=== PATIENT | female | born 2005 | race Caucasian/White ===

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

== ENCOUNTER 2024-09-16 16:54 | Emergency (ER) | payer OTHER, SELFPAY ==
[2024-09-16 17:05] VITALS: BP 118/72; PULSE 90; RESP 20; TEMP 36.4; O2SAT 100
--- NOTE | 2024-09-16 17:41 | ED.URI ---
HPI - URI/Sore Throat General Chief Complaint: Upper Respiratory Infection Stated Complaint: Cough Time Seen by Provider: 09/16/24 17:41 Source: patient, RN notes reviewed and old records reviewed Mode of arrival: ambulatory Limitations: no limitations History of Present Illness HPI Narrative: 19-year-old female to Express Care with complaint of nonproductive cough, runny nose, headache for 3 weeks. That symptoms worsened overnight while sleeping and now affecting her quality of sleep. Patient has attempted to treat at home with various htbb-ovy-cbhqrma medications little relief. Patient denies fever, sore throat, shortness of breath, chest pain, allergies. Patient able to tolerate fluids by mouth. Patient resting comfortably in exam room in no acute distress, appears tired and acutely ill. Respirations even and nonlabored. Patient able to speak in complete sentences without difficulty. Related Data Allergies Allergy/AdvReac Type Severity Reaction Status Date / Time No Known Allergies Allergy Verified 09/16/24 17:15 Review of Systems Review of Systems: All systems reviewed & are unremarkable except as noted in HPI and below Constitutional: Constitutional: Reports as per HPI and Reports headache(s) Eyes: Eyes: Reports no additional eye complaints ENT: Reports as per HPI and Reports nasal discharge Cardiovascular: Cardiovascular: Reports no additional cardiovascular complaints, Denies chest pain and Denies dyspnea Respiratory: Respiratory: Reports no additional respiratory complaints, Reports cough and Denies dyspnea Musculoskeletal: Musculoskeletal: Reports no additional musculoskeletal complaints Neurologic: Reports system reviewed and no additional complaints, except as documented Psychiatric: Psychiatric: Reports no additional psychiatric complaints [facility] Past Medical History Medical History ADHD Eczema Musculoskeletal disorder Dislocated right shoulder Surgical History Surgical History Hx of tonsillectomy Social History Social History Tobacco type: e-cigarettes/vaping Alcohol intake: unknown Substance use: unknown Living arrangements: with family Occupation/Education: student Gender identity (if verbalized by the patient): Female Comments At the time of my signature, I reviewed and agree with the nursing past medical, surgical, social, and family history. There is no relevant family history pertinent to the patient complaint. Exam Const: General: cooperative, no acute distress, well developed, alert, ill appearing acutely, tired appearing, uncomfortable, well groomed and well nourished Nutritional Appearance: well nourished Orientation/consciousness: patient oriented x3 Limitations: no limitations HENMT: Head: normal to inspection Ears: external ears normal and TM abnormal with fluid behind the TM bilateral Face/Nose/Sinus: Normal external nose present, Abnormal mucous membranes and turbinates present boggy and erythematous, No erythema, No edema and sinus tenderness Face and sinus: normal facial exam, no erythema and no edema Mouth: Yes Normal oral and palatal mucosa present Throat: posterior oropharynx abnormal erythema and postnasal drainage Eyes: General: appearance normal, both eyes and all related structures Neck: Neck: normal visual inspection, full ROM and no meningeal signs Lymphatic: no lymphadenopathy noted and no lymphedema noted Chest: Chest palpation & inspection: normal inspection of the chest Resp: Effort & Inspection: normal respiratory effort and able to speak in complete sentences Auscultation: clear to auscultation bilaterally Cardio: Jugular venous distension: no JVD Rate: regular rate Rhythm: regular rhythm Back/Spine/Pelvis: Cervical Spine: cervical ROM normal Skin: General skin exam: normal color, no rashes or lesions noted and turgor normal Neuro: General: patient oriented x3, gait normal, moves all extremities and no meningeal signs Speech: normal speech Gait exam (Neuro): Normal gait present Extrem: General: normal to inspection, full ROM and capillary refill normal Psych: Appearance: grossly normal and well kempt Course Course Emergency Course: Some parts of this dictation were generated by voice recognition software and may contain typographical and/or grammatical inaccuracies. Level of Care: Express Care Visit Vital Signs Vital signs: Vital Signs Temperature 36.4 C 09/16/24 17:05 Pulse Rate 90 09/16/24 17:05 Respiratory Rate 20 09/16/24 17:05 Blood Pressure 118/72 09/16/24 17:05 Pulse Oximetry 100 09/16/24 17:05 Oxygen Delivery Room Air 09/16/24 17:05 Temperature 36.4 C 09/16/24 17:05 Pulse Rate 90 09/16/24 17:05 Respiratory Rate 20 09/16/24 17:05 Blood Pressure 118/72 09/16/24 17:05 Pulse Oximetry 100 09/16/24 17:05 Oxygen Delivery Room Air 09/16/24 17:05 reviewed MDM - URI/Sore Throat MDM Narrative Medical decision making narrative: 19-year-old female to Express Care with complaint of nonproductive cough, runny nose, headache for 3 weeks. That symptoms worsened overnight while sleeping and now affecting her quality of sleep. Patient has attempted to treat at home with various quup-qdx-wguyeku medications little relief. Patient denies fever, sore throat, shortness of breath, chest pain, allergies. Patient able to tolerate fluids by mouth. Patient resting comfortably in exam room in no acute distress, appears tired and acutely ill. Respirations even and nonlabored. Patient able to speak in complete sentences without difficulty. On exam, bilateral TMs with fluid Steri ir oropharynx erythematous with purulent postnasal drainage. Sinus tenderness, bilateral nares erythematous and boggy. Patient is sitting uncomfortably in exam room nontoxic in appearance. Patient appropriate for outpatient treatment and follow-up. Discharge instructions reviewed with patient, as well as provided in writing per nursing staff. The instructions also include specific and strict return/GO TO THE ER as well as f/u information. All questions have been answered, and the patient deny any further questions with discharge and discharge plan. Some parts of this dictation were generated by voice recognition software and may contain typographical and/or grammatical inaccuracies. Differential Diagnosis Differential diagnosis: Likely upper respiratory infection, croup, otitis media, sinusitis, viral infection, bronchitis, influenza and pharyngitis Discharge Plan Discharge Clinical Impression: Bacterial sinusitis Patient Disposition: Home, Self-Care Condition: Stable Instructions: Sinusitis (ED) Additional Instructions: -Alternate Tylenol and Motrin per package directions for fever or pain. -Antihistamine medication such as Benadryl at night and Zyrtec/Claritin/Sheree during the day can help improve symptoms. -Use Flonase twice a day for 5 days then daily to help reduce the inflammation and dry up your sinuses. -You can also use Sudafed or Mucinex. Be sure to drink plenty of water with these medications at least 8 ounces with every dose and it is important to drink 8 to 10 glasses of water per day. Water is a natural decongestant -Eat and drink things that are easy to swallow, like tea or soup, or popsicles. -Oral rinses such as: Salt water gargles and/or may use topical anesthetic (eg. Chloraseptic spray) or lozenges to relieve dryness or throat pain). -Frequent hand washing or hand maintenance superintendent is one of the best ways to prevent spread of infection. -Using a vaporizer or humidifier at night will also help thin secretions and help with coughing up phlegm. -Follow up with primary care provider in 2-3 days if condition is not improving; or seek ER visit if you have trouble breathing, cannot drink enough fluids, have muffled voice, difficulty opening your mouth, or severe swelling. Prescriptions: New amoxicillin 875 mg tablet 875 mg PO Q12H Qty: 20 0RF Follow-up/Referrals: Rosalinda,Suzie Phillip APN [Primary Care Provider] - Stand Alone Forms: Work/School Release IP
== END 2024-09-16 17:50 | disposition home or self-care (01) ==
PROVIDERS: Emergency Provider Nurse Practitioner Family; PCP Nurse Practitioner Family
DX: J32.9 Chronic sinusitis, unspecified (principal); F17.290 Nicotine dependence, other tobacco product, uncomplicated
CPT/HCPCS: 99213; G0463

== ENCOUNTER 2024-09-30 18:26 | Emergency (ER) | payer OTHER, SELFPAY ==
[2024-09-30 18:38] VITALS: BP 132/60; PULSE 101; RESP 20; TEMP 37.2; O2SAT 100
--- NOTE | 2024-09-30 19:04 | ED_ITS ---
HPI - Skin/Abscess/Foreign Bdy General Chief complaint: Skin/Abscess/Foreign Body Stated complaint: hives all over Time Seen by Provider: 09/30/24 19:04 Source: patient, RN notes reviewed and old records reviewed Mode of arrival: ambulatory Limitations: no limitations History of Present Illness HPI narrative: 19-year-old female to Express Care with complaint of hives for 3 days. Patient reports hives are present to back, bilateral arms and bilateral legs. Patient states they get worse at night. Patient has been attempting to treat at home with Benadryl. Patient reports recently being treated with amoxicillin. Patient denies any known history of allergies to medications. Patient denies cough, shortness of breath. Patient resting in exam room in no acute distress, appears uncomfortable. Related Data Allergies Allergy/AdvReac Type Severity Reaction Status Date / Time No Known Allergies Allergy Verified 09/30/24 19:00 Review of Systems Review of Systems: All systems reviewed & are unremarkable except as noted in HPI and below Constitutional: Constitutional: Reports no additional constitutional complaints Eyes: Eyes: Reports no additional eye complaints ENT: Reports system reviewed and no additional complaints, except as documented Cardiovascular: Cardiovascular: Reports no additional cardiovascular complaints, Denies chest pain and Denies dyspnea Respiratory: Respiratory: Reports no additional respiratory complaints, Denies cough and Denies dyspnea Musculoskeletal: Musculoskeletal: Reports no additional musculoskeletal complaints Integumentary/Breasts: Skin/Breast: Reports as per HPI and Reports rash Neurologic: Reports system reviewed and no additional complaints, except as documented Psychiatric: Psychiatric: Reports no additional psychiatric complaints [facility] Past Medical History Medical History Eczema Musculoskeletal disorder Dislocated right shoulder ADHD Surgical History Surgical History Hx of tonsillectomy Social History Social History Tobacco type: e-cigarettes/vaping Alcohol intake: unknown Substance use: unknown Living arrangements: with family Occupation/Education: student Gender identity (if verbalized by the patient): Female Comments At the time of my signature, I reviewed and agree with the nursing past medical, surgical, social, and family history. There is no relevant family history pertinent to the patient complaint. Exam Const: General: cooperative, healthy appearing, no acute distress, alert, uncomfortable and well nourished Nutritional Appearance: well nourished Orientation/consciousness: patient oriented x3 Limitations: no limitations HENMT: Head: normal to inspection Ears: external ears normal Face/Nose/Sinus: Normal external nose present, Normal nares present, normal facial exam, No erythema and No edema Face and sinus: normal facial exam, no erythema and no edema Mouth: Yes Normal oral and palatal mucosa present Eyes: General: appearance normal, both eyes and all related structures Neck: Neck: normal visual inspection, full ROM and no meningeal signs Chest: Chest palpation & inspection: normal inspection of the chest Resp: Effort & Inspection: normal respiratory effort and able to speak in complete sentences Auscultation: clear to auscultation bilaterally Cardio: Jugular venous distension: no JVD Rate: regular rate Rhythm: regular rhythm Back/Spine/Pelvis: Cervical Spine: cervical ROM normal Skin: General skin exam: normal color, turgor normal and rashes Rashes: rashes noted ( Bilateral diffuse arms, bilateral diffuse legs, bilateral lower back. ) Other: erythematous, edematous, pruritic, patchy Neuro: General: patient oriented x3, gait normal, moves all extremities and no meningeal signs Speech: normal speech Gait exam (Neuro): Normal gait present Extrem: General: normal to inspection, full ROM and capillary refill normal Psych: Appearance: grossly normal and well kempt Course Course Emergency Course: Some parts of this dictation were generated by voice recognition software and may contain typographical and/or grammatical inaccuracies. Level of Care: Express Care Visit Vital Signs Vital signs: Vital Signs Temperature 37.2 C 09/30/24 18:38 Pulse Rate 101 H 09/30/24 18:38 Respiratory Rate 20 09/30/24 18:38 Blood Pressure 132/60 09/30/24 18:38 Pulse Oximetry 100 09/30/24 18:38 Oxygen Delivery Room Air 09/30/24 18:38 Temperature 37.2 C 09/30/24 18:38 Pulse Rate 101 H 09/30/24 18:38 Respiratory Rate 20 09/30/24 18:38 Blood Pressure 132/60 09/30/24 18:38 Pulse Oximetry 100 09/30/24 18:38 Oxygen Delivery Room Air 09/30/24 18:38 reviewed MDM - Skin/Abscess/Foreign Bdy MDM Narrative Medical decision making narrative: 19-year-old female to Express Care with complaint of hives for 3 days. Patient reports hives are present to back, bilateral arms and bilateral legs. Patient states they get worse at night. Patient has been attempting to treat at home with Benadryl. Patient reports recently being treated with amoxicillin. Patient denies any known history of allergies to medications. Patient denies cough, shortness of breath. Patient resting in exam room in no acute distress, appears uncomfortable. Bilateral diffuse arms, bilateral diffuse legs, bilateral lower back. erythematous, edematous,. Ache, patchy. Consistent with contact dermatitis. Patient is sitting uncomfortably in exam room nontoxic in appearance. Patient appropriate for outpatient treatment and follow-up. Discharge instructions reviewed with patient, as well as provided in writing per nursing staff. The instructions also include specific and strict return/GO TO THE ER as well as f/u information. All questions have been answered, and the patient deny any further questions with discharge and discharge plan. Some parts of this dictation were generated by voice recognition software and may contain typographical and/or grammatical inaccuracies. Differential Diagnosis Differential diagnosis: Likely abscess of skin or subcutaneous tissue, viral exanthem, dermatophytosis, urticaria, herpes zoster, allergic reaction to drug, cellulitis, eczema, insect bites, impetigo and contact dermatitis Discharge Plan Discharge Clinical Impression: Contact dermatitis Patient Disposition: Home, Self-Care Condition: Stable Instructions: Contact Dermatitis (DC) Additional Instructions: Apply triamcinolone cream as directed Take prednisone as directed Avoid hot showers May apply calamine lotion to rash Avoid scratching and this can cause a secondary infection. May take benadryl 25-50mg every 6 hours as needed for itching. Follow up with your PCP in 3-5 days if symptoms persist or sooner if they worsen Go to the Emergency Room if symptoms worsen- fever, rash spreading with treatment, shortness of breath, tongue swelling, drooling, or chest pain Patient Language: Icelandic Prescriptions: New triamcinolone acetonide 0.1 % cream 1 applic topical TID Qty: 453.6 0RF Rx Instructions: do not apply on face or genitalia prednisone 20 mg tablet See Rx Instructions .ROUTE .COMPLEX Qty: 9 0RF Rx Instructions: Take 40mg x3 days, 20mg x3 days Follow-up/Referrals: Tellez,Suzie Phillip APN [Primary Care Provider] - Stand Alone Forms: Work/School Release IP
== END 2024-09-30 19:15 | disposition home or self-care (01) ==
PROVIDERS: Emergency Provider Nurse Practitioner Family; PCP Nurse Practitioner Family
DX: L25.9 Unspecified contact dermatitis, unspecified cause (principal)
CPT/HCPCS: 99213; G0463

== ENCOUNTER 2024-11-19 18:21 | Emergency (ER) | payer OTHER, SELFPAY ==
--- OUTSIDE RECORDS SUMMARY | 2024-11-19 18:24 | XMS_ITS | Clinical Summary ---
Author Organization [facility] Address [address] [place] [address] Care Team Providers Care Molded Frames Assembler Name Role Phone Rajani Laura Primary Care Provider + Source Comments [facility],non-owned Affiliates and Associated Physician Practices is amultiple site organization consisting of ambulatory clinics and hospital sitesin [place], [place], [place] and [place]. This disclosure is being madepursuant to the Care Everywhere program and may not contain all information available regarding this patient. Last updated 18.[facility] Allergies No known active allergies Medications * Be aware that medications may not be up to date on this document. Alwaysverify current medications with the patient. Medication Sig Dispensed Refills Start Date End Date Status polyethylene glycol 3350 (MIRALAX) powder Give half cap twice daily until soft daily stools 527 g 2 06/16/2013 Active Additional Information Patient not taking.Reported on 07/02/2015 amphetamine-dextroam phetamine XR 24hr (ADDERALL XR) 10 MG capsule Take 1 Cap by mouth every morning Earliest Fill Date: 07/01/15 30 Cap 0 07/01/2015 Active Active Problems Problem Noted Date Diagnosed Date ADD (attention deficit disorder) 05/24/2015 Immunizations Name Administration Dates Next Due DTaP VACCINE IM (6wk-6yrs) 04/21/2008,,2004,09/05,2004 HEP A PEDS 2 DOSE 04/21/2008,06/11/2007 HEP B VACCINE, PED/ADOL 2004,2004, HIB-PRP-T 4 DOSE 11/17/2005, 5,2004,07/12 Human Papilloma Virus Emily valent Vaccine 07/02/2015,08/14/2013,06/12/2013 INFLUENZA VACCINE 10/25/2010,2004,11/21/19 05 POOJA VACCINE QUAD LAIV4 PF NASAL 08/14/2013 MENINGOCOCCAL CONJUGATE (MCV4P) 07/02/2015 MMR 04/21/2008,11/17/2005 PNEUMOCOCCAL PCV7 CONJ, PEDS 11/17/2005,09/05/20 04,2004 POLIO IPV 04/21/2008, 7,2004,07/12 TDAP (7yrs+) 07/02/2015 VARICELLA 04/21/2008,11/17/2005 Family History Medical History Relation Name Comments Anesthesia Reaction Mother Itching after epidural anesthesia for childbirth Relation Name Status Comments Brother Alive Father Alive Maternal Grandfather Alive Maternal Grandmother Alive Mother Alive Paternal Grandfather Alive Paternal Grandmother Alive Social History Tobacco Use Types Packs/Day Years Used Date Smoking Tobacco: Passive Smo ke Exposure - Never Smoker Cigarettes Comments:Mom and Dad both sm shakila Alcohol Use Standard Drinks/Week Comments No 0 (1 standard drink = 0.6 oz pur e alcohol) Sex and Gender Information Value Date Recorded Sex Assigned at Not on file Gender Identity Not on file Sexual Orientation Not on file Last Filed Vital Signs Vital Sign Reading Time Taken Comments Blood Pressure 112/62 07/02/2015 8:54 AM CDT Pulse 88 07/02/2015 8:54 AM CDT Temperature 36.6 ??C (97.9 ??F) 07/22/2015 9:01 AM CD T Respiratory Rate 20 04/17/2012 3:36 PM CDT Oxygen Saturation 97% 03/29/2010 9:15 AM CDT Inhaled Oxygen Concentration - - Weight 39.7 kg (87 lb 9.6 oz) 07/22/2015 9:01 AM CDT Height 143.5 cm (4' 8.5 ) 07/22/2015 9:01 AM CDT Body Mass Index 19.29 07/22/2015 9:01 AM CDT Plan of Treatment Health Maintenance Due Date Last Done Comments HIV SCREENING 2019 CHLAMYDIA/GONORRHEA SCREENING 2020 MENINGOCOCCAL (Group B) VACCINE (1 of 2 - Standard) 2020 HEPATITIS C SCREENING 04/14/2022 COVID-19 VACCINE ( season) 2024 INFLUENZA VACCINE (#1) 2024 3, 10/25/2010, 2004, Additional history exists DEPRESSION SCREENING 10/22/2024 DTAP/TDAP/TD VACCINES (7 - Td or Tdap) 07/02/2025 07/02/2015, 04/21/2008, 11/17/2005, Additional history exists ZOSTER VACCINE (1 of 2) 2054 HEPATITIS B VACCINE Completed 2004, 2004, 2004 HIB VACCINE Completed 11/17/2005, 10/24, 2004, Additional history exists PNEUMOCOCCAL VACCINE Completed 11/17/2005, 2004, 2004 HPV VACCINE Completed 07/02/2015, 07/23, 06/12/2013 MENINGOCOCCAL VACCINE Aged Out 07/02/2015 No hernando jose eligible based on patient's age to complete this topic Goals Goal Patient Goal Type Associated Problems Recent Progress Patient-Stated? Author Use safety retraint in car Lifestyle On track( 015 8:58 AM CDT) No Suyapa Anguiano, SIS Care Teams Molded Frames Assembler Relationship Specialty Start Date End Date Rajani Laura DO [address] [place] [address] PCP - General 11/11/21
--- OUTSIDE RECORDS SUMMARY | 2024-11-19 18:24 | XMS_ITS | Referral Summary ---
Author Organization [facility] Address [address] [place] [address] Care Team Providers Care Rolled Materials Worker Name Role Phone Rajani Laura Primary Care Provider + Source Comments [facility],non-owned Affiliates and Associated Physician Practices is amultiple site organization consisting of ambulatory clinics and hospital sitesin [place], [place], [place] and [place]. This disclosure is being madepursuant to the Care Everywhere program and may not contain all information available regarding this patient. Last updated 18.[facility] Allergies No known active allergies Medications * [...] 04/21/2008, 7,2004,07/12 TDAP (7yrs+) 07/02/2015 VARICELLA 04/21/2008,11/17/2005 Social History Tobacco Use Types Packs/Day Years [...] 07/22/2015 9:01 AM CDT Plan of Treatment Not on file Goals Goal Patient Goal Type Associated Problems Recent Progress Patient-Stated? Author Use safety retraint in car Lifestyle On track( 015 8:58 AM CDT) No Suyapa Anguiano, RN Care Teams Rolled Materials Worker Relationship Specialty Start Date End Date Rajani Laura DO [address] [place] [id number] PCP - General 11/11/21
--- OUTSIDE RECORDS SUMMARY | 2024-11-19 18:24 | XMS_ITS | Patient Health Summary ---
Author Organization [facility] Address [address] [place] [address] Care Team Providers Care Museum Guide Name Role Phone Rajani Laura Primary Care Provider + Note from [facility],non-owned Affiliates and Associated Physician Practices is amultiple site organization consisting of ambulatory clinics and hospital sitesin [place], [place], [place] and [place]. This disclosure is being madepursuant to the Care Everywhere program and may not contain all information available regarding this patient. Last updated 18.[facility] Allergies No known active allergies Medications * Be aware that medications may not be up to date on this document. Alwaysverify current medications with the patient. * polyethylene glycol 3350 (MIRALAX) powder(Started 06/16/2013) Give half cap twice daily until soft daily stools 2 refills left * amphetamine-dextroamphetamine XR 24hr (ADDERALL XR) 10 MG capsule(Started 07/01/2015) Take 1 Cap by mouth every morning Earliest Fill Date: 07/01/15 Active Problems Problem Noted Date Diagnosed Date ADD (attention deficit disorder) 05/24/2015 Immunizations * DTaP VACCINE IM (6wk-6yrs)(Given 04/21/2008, 11/17/2005, 2004, 2004, 2004) * HEP A PEDS 2 DOSE(Given 04/21/2008, 06/11/2007) * HEP B VACCINE, PED/ADOL(Given 2004, 2004, 2004) * HIB-PRP-T 4 DOSE(Given 11/17/2005, 2004, 2004, 2004) * Human Papilloma Virus Quadrivalent Vaccine(Given 07/02/2015, 08/14/2013, 06/12/2013) * INFLUENZA VACCINE(Given 10/25/2010, 2004, 2004) * POOJA VACCINE QUAD LAIV4 PF NASAL(Given 08/14/2013) * MENINGOCOCCAL CONJUGATE (MCV4P)(Given 07/02/2015) * MMR(Given 04/21/2008, 11/17/2005) * PNEUMOCOCCAL PCV7 CONJ, PEDS(Given 11/17/2005, 2004, 2004) * POLIO IPV(Given 04/21/2008, 06/11/2007, 2004, 2004) * TDAP (7yrs+)(Given 07/02/2015) * VARICELLA(Given 04/21/2008, 11/17/2005) Social History Tobacco Use Types Packs/Day Years [...] Mass Index 19.29 07/22/2015 9:01 AM CDT Procedures * CULTURE URINE(Performed 07/22/2015) Performed for Polyuria, Dysuria * URINALYSIS - POINT OF CARE(Performed 07/22/2015) Performed for Polyuria * XR ANKLE LEFT 3VW OR MORE(Performed 05/17/2013) * PATHOLOGY/CYTOLOGY REPORT ORDER(Performed 03/31/2010) * GROSS EXAM PATHOLOGY(Performed 03/29/2010) Performed for Chronic Tonsillitis * OXYGEN(Performed 03/29/2010) Results * CULTURE URINE (07/22/2015 9:21 AM CDT) [facility] Urine Culture Routine Final report [facility] INSURANCE BILL Result 1 [facility] INSURANCE BILL Comment: Mixed urogenital lis 25,000-50,000 colony forming units per mL Urine specimen (specimen) URINE SPECIMEN OBTAINED BY CLEAN CATCH PROCEDURE / Unknown 07/22/2015 9:21 AM CDT 07/22/2015 10:45 PM CDT Narrative Resulting Agency Comment [facility] [address] ??[facility]ly [facility] [phone] Radha Live APRN-NECK BAND SETTER LAB - MICROBIOLOG Y ORDERABLES [facility] INSURANCE BILL * (ABNORMAL) URINALYSIS - POINT OF CARE (07/22/2015 9:09 AM CDT) [facility] Clarity UA POCT clear Color UA POCT dark chelle Leukocyte UA trace Negative Nitrite UA POCT negative Negative Urobilinogen UA 1.0 0.1 - 1.0 Protein UA POCT negative Negative pH UA 6.0 5.0 - 8.0 pH units Blood UA trace Negative Specific [place] UA POCT 1.020 1.002 - 1.030 Ketone UA negative Negative Bilirubin UA POCT negative Negative Glucose UA negative Negative Urine specimen (specimen) URINE / Unknown 07/22/2015 9:09 AM CDT Radha S Harms ANIMAL RESEARCHER-NECK BAND SETTER LAB - POINT OF [place] RE ORDERABLES * XR ANKLE 3+ VW LEFT (05/17/2013) Anatomical Region Laterality Modality Lower Extremity Other Opal Perdomo MD DIAGNOSTIC IMAGING O RDERABLES * PATHOLOGY/CYTOLOGY REPORT ORDER (03/31/2010 9:21 AM CDT) Narrative 03/31/2010 9:21 AM CDT Ordered by an unspecified provider. Transcriptions Document, Scanned - 03/29/2010 12:00 AM CDT Scanned Document LAB - PATHOLOGY/CYTO LOGY ORDERABLES * GROSS EXAM PATHOLOGY (03/29/2010 8:30 AM CDT) [facility] Clinical History CAR DINAL [facility] Comment: The patient is a 4-year-old girl with obstructive sleep apnea and adenotonsillar hypertrophy. Gross Description [place] [facility] Comment: Submitted fresh in one container for gross examination only labeled with the patient's name, Angeli Alanis, and tonsils are two egg-shaped, pink-singh palatine tonsils measuring 2.5 x 1.5 x 1.0 cm and 2.5 x 1.6 x 1.2 cm weighing approximately 7.0 g combined. ??On cut surface, the tonsils have a cerebriform yellow-singh appearance. ??No sections are taken. ??(CT/lw) Gross Diagnosis CARD INAL [facility] Comment: GROSS DIAGNOSIS: ??PALATINE TONSILS. This case has been personally reviewed and interpreted by the attending (teaching) pathologist. Animal Control Licensing Worker Shauna Umana, [facility] Pathologist Barbi Cano M.D. [facility] Electronically Signed By BARBI CANO [facility] SPECIMEN FROM TONSIL / Unknown 03/29/2010 8:30 AM CDT 03/29/2010 9:59 AM CDT Sarabjit Brown MD LAB - PATHOLOGY/CYTO LOGY ORDERABLES [facility] Care Teams Museum Guide Relationship Specialty Start Date End Date Rajani Laura DO [address] [place] [address] PCP - General 11/11/21
--- OUTSIDE RECORDS SUMMARY | 2024-11-19 18:24 | XMS_ITS | Clinical Summary ---
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 Intermittent urinary incontinence 08/25/2009 Family History Medical History Relation Name Comments Nocturnal enuresis Mother Bed wetti ng - (Added by TW Conv) Urinary tract infection Mother UTI (lower urinary tract infection) - (Added by TW Conv) Relation Name Status Comments Mother Social History Tobacco Use Types Packs/Day Years Used Date Smoking Tobacco: Never Assessed Comments Unknown Sex and Gender Information Value Date Recorded Sex Assigned at Not on file 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 Gender Identity Not on file Sexual Orientation Not on file Obstetrics History Last Filed Vital Signs Vital Sign Reading Time Taken Comments Blood Pressure 109/64 01/26/2016 10:52 AM CDT Pulse - - Temperature - - Respiratory Rate - - Oxygen Saturation - - Inhaled Oxygen Concentration - - Weight 41.7 kg (92 lb) 01/26/2016 10:52 AM CDT Height 142.2 cm (4' 8 ) 01/26/2016 10:52 AM CDT Body Mass Index 20.63 01/26/2016 10:52 AM CDT Plan of Treatment Health Maintenance Due Date Last Done Comments Depression Screening 2004 Hepatitis C Screening 2004 Regular Well Visit/Exam 18-64 2022 Influenza Vaccine (#1) 2024 6, 09/28/2015, 08/14/2013, Additional history exists DTaP/Tdap/Td Vaccine (7 - Td or Tdap) 07/02/2025 07/02/2015, 04/21/2008, 11/17/2005, Additional history exists Pneumococcal vaccine <65 Completed 006, 2004, 2004 Varicella Vaccines Completed 04/21/2008, 11/17/2005 HPV Vaccines Completed 07/02/2015, 07/23, 06/12/2013 Meningococcal Vaccine Completed 04/26/2021, 015 Meningococcal B Vaccine Completed 05/31/2021, 04/26 Insurance [facility] Care Teams Patrol Community Service Officer Relationship Specialty Start Date End Date Cristin Griffith MD [address] [place] [address] PCP - General Pediatrics 07/04/21
--- OUTSIDE RECORDS SUMMARY | 2024-11-19 18:24 | XMS_ITS | Encounter Summary ---
Author Organization [facility] Address [address] [place] [address] Care Team Providers Care Maltster Name Role Phone Rajani Laura DO Primary Care Provider + Opal Perdomo MD Primary Care Provider [phone] Rajani Laura DO Primary Care Provider + Encounter Details Date Type Department Care Team (Late st Contact Info) Description 06/15/2013 [facility] Outpatient Visit CG DEFAULT [address] [place], [place] [id number] Unknown, Provider Social History Tobacco Use Types Packs/Day Years [...] on file Sexual Orientation Not on file documented as of this encounter Plan of Treatment Not on file documented as of this encounter Visit Diagnoses Not on filedocumented in this encounter Care Teams Maltster Relationship Specialty Start Date End Date Rajani Laura DO [address] [place] [address] PCP - General 03/24/10 06/30/15 Opal Perdomo MD [address] [place] [phone] PCP - General Pediatrics 07/01/15 03/05/17 Rajani Laura DO [address] [place] [phone] PCP - General 11/11/21 documented as of this encounter
--- OUTSIDE RECORDS SUMMARY | 2024-11-19 18:24 | XMS_ITS | Referral Summary ---
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 Intermittent urinary incontinence 08/25/2009 Social History Tobacco Use Types Packs/Day Years Used Date Smoking Tobacco: Never Assessed Comments Unknown Sex and Gender Information Value Date Recorded Sex Assigned at Not on file 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
--- OUTSIDE RECORDS SUMMARY | 2024-11-19 18:24 | XMS_ITS | Clinical Summary ---
Author Organization [facility] Address [address] [place] [address] Phone Care Team Providers Care Stunt Double Name Role Phone Cristin Griffith MD Primary Care Provider [phone] Allergies No known active allergies Medications No known medications Social History Tobacco Use Types Packs/Day Years Used Date Smoking Tobacco: Never Assessed Comments No Sex and Gender Information Value Date Recorded Sex Assigned at Not on file Legal Sex Female 11:14 AM BRIDGE OPERATOR Gender Identity Not on file Sexual Orientation Not on file Last Filed Vital Signs Vital Sign Reading Time Taken Comments Blood Pressure 115/61 02/29/2024 10:19 AM CDT Pulse 97 02/29/2024 10:19 AM CDT Temperature 36.7 ??C (98 ??F) 02/29/2024 10:19 AM CDT Respiratory Rate 16 02/29/2024 10:19 AM CDT Oxygen Saturation 99% 02/29/2024 10:19 AM CDT Inhaled Oxygen Concentration - - Weight 49.9 kg (110 lb) 02/29/2024 10:19 AM CDT Height 165.1 cm (5' 5 ) 02/29/2024 10:19 AM CDT Body Mass Index 18.3 02/29/2024 10:19 AM CDT Plan of Treatment Health Maintenance Due Date Last Done Comments Hepatitis C Virus (HCV) Screening 2004 Influenza Immunization (#1) 06/22/202407/22, 09/28/2015, 08/14/2013, Additional history exists SARS-COV-2 Immunization (2023-25 season) 2024 Respiratory Syncytial Virus (RSV) Immunization (Adult) (1 - 1-dose 75+ series) 2079 Hepatitis B Immunization Completed 005, 2004, 2004, Additional history exists Pneumococcal Immunization Combined Aged Out 11/17/2005, 2004, 2004 No longer eligible based on patient's age to complete this topic Hepatitis A Immunization Discontinued 04/21/2008, 05/23 Measles Mumps Rubella (MMR) Immunization Discontinued 04/21/2008, 11/17/2005 Polio (IPV) Immunization Discontinued 008, 06/11/2007, 2004, Additional history exists Varicella Immunization Discontinued 04/21/2008, 2005 DTaP/Tdap/Td Immunization Discontinued 2014, 04/21/2008, 11/17/2005, Additional history exists Human Papillomavirus (HPV) Immunization Completed 07/02/2015, 08/14/2013, 06/12/2013 TdaP Immunization Completed 07/02/2015 Meningococcal Immunization (ACWY) Completed 04/26/2021, 07/02/2015 Meningococcal B Immunization Completed 05/31/2021, 04/26/2021 Rotavirus Immunization Aged Out No lo nger eligible based on patient's age to complete this topic Insurance [place] Care Teams Stunt Double Relationship Specialty Start Date End Date Cristin Griffith MD [address] [place] [address] PCP - General Pediatrics 10/18/21
[2024-11-19 18:25] VITALS: BP 142/60; PULSE 104; RESP 16; TEMP 37.2; O2SAT 100
--- NOTE | 2024-11-19 19:31 | ED_ITS ---
HPI - URI/Sore Throat General Chief Complaint: Upper Respiratory Infection Stated Complaint: exposed to covid/flu/strep Time Seen by Provider: 11/19/24 19:20 Source: patient, RN notes reviewed and old records reviewed Mode of arrival: ambulatory Limitations: no limitations History of Present Illness HPI Narrative: 19 year old female who presents to [facility] care with complaints of nasal drainage, cough, with fever noted yesterday of 101.3F. Patient reports that she has been sick for about 2 weeks with some intermittent cough, headache and nasal drainage. Patient reports that she has not had a sore throat till today and no fevers except for yesterday. 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 Patient has not been taking any medications routinely for her symptoms. MD elicited complaint: fever, cough, sore throat, rhinorrhea and nasal congestion Onset (ago): week(s) (intermittently 2 weeks) Consistency: intermittent Severity: mild Pain scale (0-10): 3 Able to tolerate fluids by mouth: Yes Treatments prior to arrival: ibuprofen (a few times) Related Data Allergies Allergy/AdvReac Type Severity Reaction Status Date / Time No Known Allergies Allergy Verified 09/30/24 19:00 Review of Systems Review of Systems: CONSTITUTIONAL: Reports malaise, chills, sweats, reports fever yesterday none today. EYES: Denies visual changes, redness, or discharge. ENT: Reports rhinorrhea, congestion, sinus pain,no otalgia and only sore throat today.. CARDIOVASCULAR: Denies chest pain, palpitations, or edema. RESPIRATORY: Reports cough.? Denies dyspnea. GASTROINTESTINAL: Denies abdominal pain, nausea, vomiting, diarrhea SKIN: Denies rash or itching. MUSCULOSKELETAL: Denies myalgia. NEUROLOGIC: Denies headache. All systems reviewed & are unremarkable except as noted in HPI and below PMFSH Past Medical History Medical History Eczema Musculoskeletal disorder Dislocated right shoulder ADHD Surgical History Surgical History Hx of tonsillectomy Social History Social History Tobacco type: e-cigarettes/vaping Alcohol intake: unknown Substance use: unknown Living arrangements: with family Occupation/Education: student Gender identity (if verbalized by the patient): Female Comments At time of signature, agree with nursing past medical, surgical, social and family history. There is no relevant family history pertinent to the presenting complaint Exam Narrative: GENERAL: Well-appearing, well-nourished, and in no acute distress. HEAD: Normocephalic EYES: PERRLA, conjunctivae clear ENT: Nares clear, turbinates edematous and erythematous, clear discharge. Mucous membranes moist. TM pearly hebert with dull light reflex bilaterally; no tragal tenderness. Oropharynx erythematous without lesions. Tonsils not present and throat without exudate, no drooling, no hoarseness, no trismus, uvula midline.some post op drainage NECK: Supple. No lymphadenopathy CHEST: Clear to auscultation, breath sounds equal. No wheezing, rhonchi, rales, or stridor. No respiratory distress, speaks in full sentences.SAO2 100% on room air HEART: Regular rate and rhythm. No murmur heard. SKIN: Warm, dry, no rash. NEURO: Alert and oriented x3. PSYCH: Normal mood and affect Course Course Emergency Course: Patient is aware of diagnosis, understands and agrees to treatment plan.? Anticipatory guidance given.? Patient agrees to follow-up as directed and is aware of reasons to seek care at the emergency department. Portions of this record may have been created with voice recognition software Level of Care: Express Care Visit Vital Signs Vital signs: Vital Signs Temperature 37.2 C 11/19/24 18:25 Pulse Rate 104 H 11/19/24 18:25 Respiratory Rate 16 11/19/24 18:25 Blood Pressure 142/60 H 11/19/24 18:25 Pulse Oximetry 100 11/19/24 18:25 Oxygen Delivery Room Air 11/19/24 18:25 Temperature 37.2 C 11/19/24 18:25 Pulse Rate 104 H 11/19/24 18:25 Respiratory Rate 16 11/19/24 18:25 Blood Pressure 142/60 H 11/19/24 18:25 Pulse Oximetry 100 11/19/24 18:25 Oxygen Delivery Room Air 11/19/24 18:25 Reviewed MDM - URI/Sore Throat MDM Narrative Medical decision making narrative: Differential diagnosis considered: Miller virus, strep pharyngitis, allergic rhinitis, upper respiratory tract infection, sinusitis, rhinosinusitis, nasopharyngitis. viral pharyngitis, otitis media, otitis externa, pneumonia, bronchitis, viral cough syndrome, viral syndrome, and influenza.? Exam findings show no acute concerns or changes; patient is non-toxic appearing and is in no distress.? Patient is appropriate for outpatient treatment and follow-up. Differential Diagnosis Differential diagnosis: Likely upper respiratory infection, viral infection, influenza, pharyngitis and other (COVID) Medical Records Attestation: I reviewed the patient's medical records. Lab Data Attestation: I reviewed the patient's lab results. Lab results narrative: Strep screen negative, culture sent, Influenza A negative, Influenza B neg, COVID antigen negative Critical Care Time Critical Care Time Critical Care Time: No Discharge Plan Discharge Clinical Impression: Upper respiratory infection Qualifiers: URI type: unspecified URI Qualified Code(s): J06.9 - Acute upper respiratory infection, unspecified Patient Disposition: Home, Self-Care Condition: Stable Instructions: Antibiotic Form, Upper Respiratory Infection (ED) Additional Instructions: Increase fluids especially juices and water [id number]-[id number] cough and cold medicine of your choice for your symptoms Zyrtec Claritin or Sheree daily for sinus congestion Tylenol or Ibuprofen for any fever or pain heat to the face 20-30 minutes 4-6 times a day for pain Salt water gargles, throat lozenges or throat sprays as desired Your COVID FLU and Strep screen were all negative today Your strep test today was negative. A throat culture will be sent to the laboratory for further testing. IF the test is positive, you will receive a phone call within 48 hours and an appropriate antibiotic will be initiated at that time. If your symptoms persist, change or worsen significantly before you can contact your personal physician then please, without delay, go to the emergency department for further evaluation. Follow-up with PCP in 7-10 days or sooner if needed Follow up with PCP soon in regards to your blood pressure which is elevated above threshold for referral. Blood pressure above 120/80 may indicate pre- hypertension.142/60 Patient Language: Belarusian Prescriptions: New cetirizine [Zyrtec] 10 mg tablet 10 mg PO DAILY Qty: 30 0RF Follow-up/Referrals: Tellez,Suzie Phillip APN [Primary Care Provider] - Time of Disposition: 19:52 Quality Jon Coma Scale Eyes: Open Verbal: Oriented and Alert Motor: Follows Commands Jon Coma Total Score: 15
[2024-11-19 19:37] LABS: EDCOVIDSCREEN Negative (Negative); EDINFLUASCREEN Negative (Negative); EDINFLUBSCREEN Negative (Negative); EDSTREPNEGPOS1 Negative (Negative)
== END 2024-11-19 20:01 | disposition home or self-care (01) ==
PROVIDERS: Emergency Provider Registered Nurse; PCP Nurse Practitioner Family
DX: J06.9 Acute upper respiratory infection, unspecified (principal); Z20.822 Contact with and (suspected) exposure to COVID-19; F17.290 Nicotine dependence, other tobacco product, uncomplicated
CPT/HCPCS: 87081; 87426; 87804; 87880; 99213; G0463